=== PATIENT | female | born 1980 | race Caucasian/White ===

== ENCOUNTER 2018-01-16 11:19 | Emergency (ER) | payer MEDICAID, SELFPAY ==
[2018-01-16 11:20] VITALS: BP 136/85; PULSE 81; RESP 16; TEMP 36.5; BMI 32.1
--- NOTE | 2018-01-16 11:55 | ED.DCSUM_ITS ---
- ER Visit Summary Date of Service: 01/16/18 Chief Complaint: Sore throat History of Present Illness: The patient is a 37 F who states that beginning yesterday she has had a sore throat. She states it feels very much like strep throat. The patient denies any fever. No cough. She had a little bit of a runny nose sinus congestion yesterday. She states it is very painful to swallow. No rashes. Her son is also in the emergency department with similar complaints Physical Examination: Afebrile vital signs are stable Gen: Well-nourished well-developed Head: Normocephalic atraumatic Eyes: Perrl EOMI ENT: TMs clear no rhinorrhea moist mucous membranes there is bilateral tonsillar swelling with exudates right greater than left. The uvula is midline. There is no obvious retropharyngeal or peritonsillar abscess Neck: Supple. Anterior lymph nodes that are mobile and slightly tender no JVD nontender CVS: Regular rate rhythm no murmurs normal S1-S2 Respiratory: No distress clear to auscultation bilaterally chest nontender Abdomen: Soft nontender nondistended normal bowel sounds no masses Back: Nontender Extremity: Nontender no edema Skin: Normal color no rash Neuro: alert orientated ?3 CN II-XII intact normal strength sensation reflexes gait cerebellar Psych: Normal affect normal mood Test Results: Culture was sent Emergency Department Course and Treatment: Patient was given a dose of p.o. Decadron. I will start her on azithromycin Impression: 1. Strep pharyngitis This note was generated with [employer] dictation software. It may contain incorrect words, spelling, and punctuation that were not noted in review of the chart prior to signing ED Disposition - Plan for ED Patient: Disposition: Home or Assisted Living Chief Complaint: Sore Throat Instructions: ED Strep Pharyngitis Conf Prescriptions: Azithromycin 500 mg PO DAILY #5 tab Referrals: Quincy Ordonez MD [Primary Care Provider] - 1 Week if not improving
[2018-01-16 12:25] VITALS: BP 125/82; PULSE 86; RESP 14; O2SAT 98
--- NOTE | 2018-01-18 13:44 | ED.RN ---
Dr Thorpe verifies home treatment is appropriate.
== END 2018-01-16 12:25 | disposition home or self-care (01) ==
PROVIDERS: Emergency Provider Emergency Medicine; Family Provider Family Medicine; PCP Family Medicine
DX: J02.0 Streptococcal pharyngitis (principal); M06.9 Rheumatoid arthritis, unspecified; Z72.0 Tobacco use
CPT/HCPCS: 87070; 87077; 99283

== ENCOUNTER 2018-06-08 15:05 | Emergency (ER) | payer MEDICAID, SELFPAY ==
[2018-06-08 15:06] VITALS: BP 144/95; PULSE 91; RESP 18; TEMP 36.9; O2SAT 98; BMI 28.3
--- NOTE | 2018-06-08 15:48 | ED.VISSUMM ---
- ER Visit Summary Date of Service: 06/08/18 Chief Complaint: Headache History of Present Illness: The patient is a 37 F presenting with headache and not feeling well. She states that approximately a week ago she mixed cocaine and methamphetamine. She states since that time she has been having intermittent headaches. She states she also has ringing in her ears which has been constant. She denies chest pain. She complains of intermittent palpitations and nausea. She states she has anxiety. She denies suicidal thoughts or plan. Physical Examination: Vitals are stable. Patient is afebrile. Alert no acute distress. HEENT exam is unremarkable. TMs normal bilaterally Neck is supple. Lungs are clear and equal bilaterally. Heart is regular rate and rhythm. Abdomen is soft nontender nondistended. Extremities are unremarkable. Skin is warm and dry. No focal neurologic deficit. Remainder of exam is unremarkable. Emergency Department Course and Treatment: EKG is sinus rhythm rate of 79 with no acute ischemic change. She is given IV Zofran, Tylenol. CTA neck is normal. CTA head shows absent P1 segment of the right posterior cerebral artery. There is no other abnormality of the [place]. Patient is resting comfortably in the emergency department. She is advised to follow-up with her primary care physician. Advised return to the ED for worsening complaints. Disposition: Discharge home Impression: Polysubstance abuse This note was generated with [employer] dictation software. It may contain incorrect words, spelling, and punctuation that were not noted in review of the chart prior to signing ED Disposition - Plan for ED Patient: Chief Complaint: Substance Abuse Referrals: Quincy Ordonez MD [Primary Care Provider] -
[2018-06-08] MEDS: Acetaminophen 500 MG Tablet 1000 MG PO (15:53)
[2018-06-08] MEDS: Ondansetron 4 MG/2 ML Vial IV (15:53)
--- NOTE | 2018-06-08 17:31 | ED.DEP ---
ED Disposition - Plan for ED Patient: Chief Complaint: Substance Abuse Instructions: ED Drug Abuse General Referrals: Quincy Ordonez MD [Primary Care Provider] -
[2018-06-08 17:42] VITALS: BP 147/88; PULSE 81; RESP 15; O2SAT 100
--- NOTE | 2018-06-08 17:42 | ED.RN ---
PT GIVEN WRITTEN AND VERBAL DISCHARGE INSTRUCTIONS. PT VERBALIZES UNDERSTANDING AND DENIES ANY FURTHER PROBLEMS. PT IV D/C AND COVERED WITH 2X2 GAUZE DRESSING. PT REQUESTED NOT TO HAVE DRESSING TAPE. AMBULATES OUT OF DEPT BY SELF.
== END 2018-06-08 17:44 | disposition home or self-care (01) ==
LOC: ED 15:59
PROVIDERS: Emergency Provider Emergency Medicine; Family Provider Family Medicine; PCP Family Medicine
DX: F15.10 Other stimulant abuse, uncomplicated (principal); F14.10 Cocaine abuse, uncomplicated; M06.9 Rheumatoid arthritis, unspecified; Z72.0 Tobacco use; Z79.899 Other long term (current) drug therapy
CPT/HCPCS: 70496; 70498; 93005; 96374; 99284; Q9967; J2405

== ENCOUNTER 2018-10-04 12:06 | Emergency (ER) | payer MEDICAID, SELFPAY ==
[2018-10-04 12:06] VITALS: BP 136/86; PULSE 100; RESP 16; TEMP 36.4; O2SAT 100; BMI 25.2
[2018-10-04] MEDS: Morphine 4 MG/ML Syringe IV (13:42)
[2018-10-04] MEDS: Ketorolac 15 MG/ML Vial IV (13:42)
[2018-10-04] MEDS: Ondansetron 4 MG/2 ML Vial IV (13:42)
[2018-10-04 14:18] VITALS: PULSE 91; RESP 14
--- NOTE | 2018-10-04 14:45 | ED.VISSUMM ---
- ER Visit Summary Date of Service: 10/04/18 Chief Complaint: Right-sided back pain with radiation to right buttocks History of Present Illness: The patient is a 38 F who has history of rheumatoid arthritis on immunosuppressive meds, Humira and gabapentin for her pain. She denies bowel bladder dysfunction. Denies saddle paresthesia anesthesia. She denies foot drop. She does have history of degenerative disc disease. There is no history of trauma. She preferred to sit versus standing. She denies weakness in her quadricep muscles going up and down steps. She denies fever, chills night sweats. She denies dysuria, frequency, urgency or hematuria. She has no other complaints please read written note Physical Examination: Patient appears uncomfortable. Vital signs noted. Head is atraumatic normocephalic. Pupils are equal round reactive. Extraocular muscles are intact. TMs are pearly white with landmarks noted. Nares patent with no drainage. Posterior pharynx without erythema or exudate. Uvula is midline. There is no dysphonia or dysphasia. Trachea is midline. There is no stridor with auscultation of the neck. She does have vesicular rash consistent with cold sores lower lip/chin. Heart is regular without murmur, gallop or rub. S1 and S2 are normal. Lungs are clear to auscultation with good movement of air bilaterally. Abdomen is soft nontender bowel sounds are present normal. There is no hepatospleno megaly. There is no pain the patient pelvis. She has had midline low back pain. Straight leg test on the right is equivocal. Negative crossover test. Patella and ankle reflex are 2+. EHL is intact. Of note effort was poor. PT and DP pulse about 1. Normal perianal sensation. Patient was reassessed after IV medication and she appears markedly better. Straight leg test was performed again and is negative. Bowstring sign test is negative. Test Results: None Emergency Department Course and Treatment: IV analgesia and reevaluation Treatment Plan: Discharge with oral pain medicine Disposition: Discharged home in stable improved condition Impression: 1. Right lower back pain with radicular pain 2. Degenerative disc disease lumbar spine multilevel 3. Rheumatoid arthritis on immunosuppressive meds This note was generated with [employer] software. It may contain incorrect words, spelling, and punctuation that were not noted in review of the chart prior to signing ED Disposition - Plan for ED Patient: Disposition: Home or Assisted Living Chief Complaint: Other, Pain/Inj Instructions: ED Neck Back Pain General Prescriptions: Hydrocodone Bitart/Apap 5-325 [[place] 5MG-325MG] 1 tab PO Q6H PRN PRN 3 Days #10 tab PRN Reason: Pain Naproxen [Naprosyn] 500 mg PO BID #14 tab Referrals: Quincy Ordonez MD [Primary Care Provider] - 3-5 Days if not improving
--- NOTE | 2018-10-04 14:49 | ED.DCSUM_ITS ---
- ER Visit Summary Date of Service: 10/04/18 Chief Complaint: Right-sided back pain with radiation to right buttocks History of Present Illness: The patient is a 38 F who has history of rheumatoid arthritis on immunosuppressive meds, Humira and gabapentin for her pain. She denies bowel bladder dysfunction. Denies saddle paresthesia anesthesia. She denies foot drop. She does have history of degenerative disc disease. There is no history of trauma. She preferred to sit versus standing. She denies w eakness in her quadricep muscles going up and down steps. She denies fever, chills night sweats. She denies dysuria, frequency, urgency or hematuria. She has no other complaints please read written note Physical Examination: Patient appears uncomfortable. Vital signs noted. Head is atraumatic normocephalic. Pupils are equal round reactive. Extraocular muscles are intact. TMs are pearly white with landmarks noted. Nares patent with no drainage. Posterior pharynx without erythema or exudate. Uvula is midline. There is no dysphonia or dysphasia. Trachea is midline. There is no stridor with auscultation of the neck. She does have vesicular rash consistent with cold sores lower lip/chin. Heart is regular without murmur, gallop or rub. S1 and S2 are normal. Lungs are clear to auscultation with good movement of air bilaterally. Abdomen is soft nontender bowel sounds are present normal. There is no hepatospleno megaly. There is no pain the patient pelvis. She has had midline low back pain. Straight leg test on the right is equivocal. Negative crossover test. Patella and ankle reflex are 2+. EHL is intact. Of note effort was poor. PT and DP pulse about 1. Normal perianal sensation. Patient was reassessed after IV medication and she appears markedly better. Straight leg test was performed again and is negative. Bowstring sign test is negative. Test Results: None Emergency Department Course and Treatment: IV analgesia and reevaluation Treatment Plan: Discharge with oral pain medicine Disposition: Discharged home in stable improved condition Impression: 1. Right lower back pain with radicular pain 2. Degenerative disc disease lumbar spine multilevel 3. Rheumatoid arthritis on immunosuppressive meds This note was generated with [employer] software. It may contain incorrect words, spelling, and punctuation that were not noted in review of the chart prior to signing ED Disposition - Plan for ED Patient: Disposition: Home or Assisted Living Chief Complaint: Other, Pain/Inj Instructions: ED Neck Back Pain General Prescriptions: Hydrocodone Bitart/Apap 5-325 [[place] 5MG-325MG] 1 tab PO Q6H PRN PRN 3 Days #10 tab PRN Reason: Pain Naproxen [Naprosyn] 500 mg PO BID #14 tab Referrals: Quincy Ordonez MD [Primary Care Provider] - 3-5 Days if not improving
[2018-10-04 14:55] VITALS: PULSE 81; RESP 14
== END 2018-10-04 14:56 | disposition home or self-care (01) ==
PROVIDERS: Emergency Provider Emergency Medicine; Family Provider Family Medicine; PCP Family Medicine
DX: M51.16 Intervertebral disc disorders with radiculopathy, lumbar region (principal); M06.9 Rheumatoid arthritis, unspecified; Z79.899 Other long term (current) drug therapy; Z72.0 Tobacco use
CPT/HCPCS: 96374; 96375; 99283; J2405